=== PATIENT | male | born 1970 | race Two or more races ===

== ENCOUNTER 2024-01-29 02:05 | Inpatient (IN) | payer OTHER ==
[~2024-01-29] VITALS: Ht 152.4 cm; Wt 81.6 kg
[2024-01-29] MEDS ORDERED: GRALISE600 MG PO (02:21)
[2024-01-29] MEDS ORDERED: GLUMETZA1000 MG PO (02:21)
[2024-01-29] MEDS ORDERED: ZESTRIL5 MG PO (02:23)
[2024-01-29] MEDS ORDERED: ACID REDUCER20 M1 PO (02:23)
[2024-01-29] MEDS ORDERED: SUBOXONE 12 MG1 EACH SL (02:23)
--- NOTE | 2024-01-29 02:29 | NUR ---
PTE ALERTA Y ORIENTADO X3 EN COMPANIA DE FAMILIAR. PTE REFIERE QUE A PRESENTADO DOLOR ABDOMINAL DESDE HACE 4 FLORES. REFIERE QUE HOY EL DOLOR SE A INTENSIFICADO.
[2024-01-29] MEDS ORDERED: HYOSCYAMINE SULFATE 0.125 MG TAB.SUBL SL STA (03:08)
[2024-01-29] MEDS ORDERED: RINGERS SOLUTION,LACTATED 1,000 ML IV STA (03:08)
[2024-01-29] MEDS ORDERED: KETOROLAC TROMETHAMINE 30 MG VIAL IV STA (03:09)
[2024-01-29] MEDS ORDERED: FAMOtidine 10 MG/ML (4ML VIAL) IV PUSH STA (03:10)
[2024-01-29] MEDS ORDERED: LORazepam 2 MG/ML VIAL IM STA (03:18)
[2024-01-29 03:37] LABS: HEMATOCRIT 34.3 % (39.0-48.0); HEMOGLOBIN 11.4 g/dL (13-16.00); MEAN CELL VOLUME 83.7 fL (80.0-100.00); MEAN CORPUSCULAR HEMOGLOBIN 27.9 pg (27.00-32.0); MEAN CORPUSCULAR HGB CONC 33.3 g/dl (32.0-36.0); PLATELET COUNT 256 K/uL (150-450); RED CELL DISTRIBUTION WIDTH 14.9 % (11.5-14.5)
--- NOTE | 2024-01-29 03:46 | NUR ---
SE ORIENTA PTE SOBRE TX A SEGUIR, LA MISMA REFIERE ENTENDER. SE ADMINISTRA MED SUMMER ORDEN MEDICA Y SE KIKE MUESTRA DE LAB
[2024-01-29 03:55] LABS: CALCIUM 9.7 mg/dL (8.5-10.1); CREATININE SERUM 1.03 mg/dL (0.70-1.30); GFR 74.98; POTASSIUM 4.34 mEq/L (3.5-5.1)
[2024-01-29] MEDS ORDERED: PIPERACILLIN/TAZOBACTAM SODIUM 3.375 GM VIAL IV ONE (13:00)
[2024-01-29] MEDS ORDERED: HALOPERIDOL LACTATE 5 MG/ML AMPUL IM PRN (13:45)
[2024-01-29] MEDS ORDERED: MEPERIDINE HCL/PF 50 MG/ML VIAL IM PRN (13:45)
[2024-01-29 16:00] VITALS: BP 136/80; O2SAT 95
[2024-01-30 00:53] VITALS: BP 137/73; O2SAT 96
[2024-01-30] MEDS ORDERED: INSULIN LISPRO 1,000 UNIT/10 ML UNITS SUBCUTANEO PRN (05:30)
[2024-01-30] MEDS ORDERED: DEXTROSE 50 % IN WATER 0.5 G/ML DISP.SYRIN IV PRN (05:30)
[2024-01-30 06:49] LABS: HEMATOCRIT 32.6 % (39.0-48.0); HEMOGLOBIN 11.1 g/dL (13-16.00); MEAN CELL VOLUME 82.7 fL (80.0-100.00); MEAN CORPUSCULAR HEMOGLOBIN 28.2 pg (27.00-32.0); MEAN CORPUSCULAR HGB CONC 34.1 g/dl (32.0-36.0); PLATELET COUNT 232 K/uL (150-450); RED BLOOD COUNT 3.94 M/uL (4.00-6.00); RED CELL DISTRIBUTION WIDTH 14.7 % (11.5-14.5)
[2024-01-30 10:11] LABS: ALBUMIN 3.1 gm/dL (3.4-5.0); ALKALINE PHOSPHATASE 97 U/L (50-136); ALT/SGPT 21 U/L (12-78); AMYLASE 83 U/L (25-115); ANION GAP 11 (10.0-20.0); AST/SGOT 16 U/L (15-37); BILIRUBIN TOTAL 0.36 mg/dL (0.3-1.2); BILIRUBIN,CONJUGATED < 0.10 mg/dL (0.0-0.2); BILIRUBIN,UNCONJUGATED 0.26 mg/dL (0.0-0.6); BLOOD UREA NITROGEN 25 mg/dL (7-18); BUN CREA RATIO 32 (7.0-25.0); CALCIUM 9.1 mg/dL (8.5-10.1); CARBON DIOXIDE 27 mEq/L (21-32); CHLORIDE 103 mmol/L (98-107); CREATININE SERUM 0.78 mg/dL (0.70-1.30); GFR 103.34; GLOBULINA 3.8 G/DL (2.4-3.5); POTASSIUM 4.19 mEq/L (3.5-5.1); SODIUM 137 mmol/L (136-145); TOTAL PROTEIN 6.9 gm/dL (6.4-8.2)
[2024-01-30 10:13] VITALS: BP 125/80; O2SAT 99
[2024-01-30 10:16] LABS: GLUCOSE FASTING 216 mg/dL (65-100); LIPASE 349 U/L (13-75); OSMOLALITY SERUM 285 MOSM/KG (275-295)
[2024-01-30] MEDS ORDERED: CLONAZEPAM 0.5 MG TABLET PO ONE (10:30)
[2024-01-30 18:16] VITALS: BP 100/69
[2024-01-31 02:23] VITALS: BP 170/72
== END 2024-01-31 07:18 | disposition left against medical advice (07) | DRG 392 ==
LOC: ER 02:05 → MEDJ 13:39 → SEC-K 13:39 → MEDJ 17:19
PROVIDERS: ADMIT Internal Medicine; ATTEND Internal Medicine
PROC: BW40ZZZ Ultrasonography of Abdomen (ICD-10-PCS; principal; 2024-01-29)
PROC: BF37ZZZ Magnetic Resonance Imaging (MRI) of Pancreas (ICD-10-PCS; 2024-01-29)
DX: K29.70 Gastritis, unspecified, without bleeding (principal); E11.9 Type 2 diabetes mellitus without complications; Z79.4 Long term (current) use of insulin